=== PATIENT | male | born 1935 | race Caucasian/White ===

== ENCOUNTER → 2018-07-01 | Outpatient (CLI) | payer OTHER | LOC: LAB SHORT 07:38 → PLD 07:38 | DX: L30.9 Dermatitis, unspecified (principal) | CPT/HCPCS: 88312 ==

== ENCOUNTER 2020-02-06 11:01 | Emergency (ER) | payer OTHER, MEDICARE ==
[~2020-02-06] VITALS: Ht 180.3 cm; Wt 64.9 kg
[2020-02-06 12:47] LABS: Source, Urine Clean Catch
[2020-02-06 12:59] LABS: Bilirubin, Urine Neg (Neg); Blood, Urine Neg (Neg); Glucose Qualitative, Urine Neg (Neg); Ketones, Urine Neg (Neg); Leukocyte Esterase, Urine Neg (Neg); Nitrite, Urine Neg (Neg); Protein, Urine Neg (Neg); Urobilinogen, Urine NORM (Normal)
[2020-02-06 13:08] LABS: Appearance, Urine Clear (Clear); Color, Urine Yellow (P-Yellow)
[2020-02-06] MEDS ORDERED: SERT100 PO (14:07)
[2020-02-06] MEDS ORDERED: CLOP75 PO ×2 (14:08→15:40)
[2020-02-06] MEDS ORDERED: TORSE20 PO (15:38)
[2020-02-06] MEDS ORDERED: Abilify2 MG PO (15:38)
[2020-02-06] MEDS ORDERED: DONE5 PO (15:38)
[2020-02-06] MEDS ORDERED: SERT25 PO (15:40)
[2020-02-06] MEDS ORDERED: Lisinopril2.5 MG PO (15:40)
[2020-02-06] MEDS ORDERED: POTCHL20ER PO (15:40)
[2020-02-06] MEDS ORDERED: Pravachol40 MG PO (15:41)
[2020-02-06] MEDS ORDERED: Flomax0.4 MG PO (15:41)
[2020-02-06] MEDS ORDERED: CARV3.125 PO (15:42)
== END 2020-02-06 15:53 | disposition home or self-care (01) ==
LOC: ER 11:01
PROVIDERS: Physician Assistant
DX: N40.1 Benign prostatic hyperplasia with lower urinary tract symptoms (principal); R35.0 Frequency of micturition; F41.9 Anxiety disorder, unspecified; F03.90 Unspecified dementia, unspecified severity, without behavioral disturbance, psychotic disturbance, mood disturbance, and anxiety; Z79.899 Other long term (current) drug therapy; Z79.02 Long term (current) use of antithrombotics/antiplatelets
CPT/HCPCS: 51798; 81003; 99283-25

== ENCOUNTER → 2020-11-18 | Outpatient (CLI) | payer OTHER ==
[~2020-11-18] MED LIST: ACETAMINOPHEN500 MG PO; ASPI81CH PO; Abilify2 MG PO; CARBLEV25 SL; CARV3.125 PO; CLOP75 PO; DONE5 PO; Flomax0.4 MG PO; Isosorbide Mono30 MG PO; LIDO700A20 TOP; Lisinopril2.5 MG PO; MIRT15 PO; MULVITA PO; POTCHL20ER PO; Pravachol40 MG PO; SERT100 PO; SERT25 PO; TORSE20 PO; Valium5 MG PO
[2020-11-18 16:47] LABS: BASOPHILS ABSOLUTE AUTO 0.02 K/mm3 (0.00-0.23); BASOPHILS PERCENT AUTO 0 % (0-2); EOSINOPHILS PERCENT AUTO 1 % (0-6); Hematocrit 41.9 % (37.0-53.0); Hemoglobin 14.1 g/dL (13.5-17.5); IMMATURE GRAN ABSOLUTE AUTO 0.04 K/mm3 (0.00-0.10); IMMATURE GRAN PERCENT AUTO 0 % (0-1); LYMPHOCYTES ABSOLUTE AUTO 1.66 K/mm3 (0.84-5.20); LYMPHOCYTES PERCENT AUTO 15 % (21-46); MONOCYTES ABSOLUTE AUTO 1.25 K/mm3 (0.16-1.47); MONOCYTES PERCENT AUTO 11 % (4-13); Mean Corpuscular HGB 31.2 pg (26.0-34.0); Mean Corpuscular HGB Conc 33.7 g/dL (31.5-36.5); Mean Corpuscular Volume 93 fL (80-100); Mean Platelet Volume 9.7 fL (9.1-12.4); NEUTROPHILS ABSOLUTE AUTO 7.99 K/mm3 (1.96-9.15); NEUTROPHILS PERCENT AUTO 72 % (41-73); Platelet Count 225 K/mm3 (150-400); RDW Coefficient Variation 12.8 % (11.7-14.2); RDW Standard Deviation 43.4 fL (35.1-46.3); Red Blood Cell Count 4.52 M/mm3 (4.30-5.90); White Blood Cell Count 11.06 K/mm3 (4.00-11.30)
[2020-11-18 17:05] LABS: Albumin, Blood 3.9 g/dL (3.4-5.0); Bilirubin, Total 0.4 mg/dL (0.1-1.0); Bun/Creatinine Ratio 18.1 (12.0-20.0); Calcium, Blood 9.9 mg/dL (8.5-10.1); Creatinine, Blood 1.88 mg/dL (0.60-1.20); Potassium, Blood 4.3 mmol/L (3.5-5.5); Thyroid Stimulating Hormone 3.145 uIU/mL (0.360-4.800); Total Protein, Blood 7.9 g/dL (6.4-8.2)
== END ==
LOC: LAB SHORT 16:43 → LAB 16:43
PROVIDERS: Physician Assistant
DX: R53.83 Other fatigue (principal)
CPT/HCPCS: 80053; 84443; 85025

== ENCOUNTER 2021-05-01 20:53 | Emergency (ER) | payer OTHER ==
[~2021-05-01] VITALS: Ht 180.3 cm; Wt 76.2 kg
[~2021-05-01 20:53] MED LIST changes: -ACETAMINOPHEN500 MG PO; -ASPI81CH PO; -CARBLEV25 SL; -Isosorbide Mono30 MG PO; -LIDO700A20 TOP; -MIRT15 PO; -MULVITA PO; -Valium5 MG PO
[2021-05-01] MEDS ORDERED: ASPI81CH PO (21:21)
[2021-05-01] MEDS ORDERED: CARBLEV25 SL (21:22)
[2021-05-01] MEDS ORDERED: MULVITA PO (21:23)
[2021-05-01] MEDS ORDERED: Isosorbide Mono30 MG PO (21:24)
[2021-05-01] MEDS ORDERED: MIRT15 PO (21:25)
[2021-05-01 23:17] LABS: BASOPHILS ABSOLUTE AUTO 0.02 K/mm3 (0.00-0.23); BASOPHILS PERCENT AUTO 0 % (0-2); EOSINOPHILS ABSOLUTE AUTO 0.39 K/mm3 (0.00-0.68); EOSINOPHILS PERCENT AUTO 4 % (0-6); Hematocrit 35.4 % (37.0-53.0); Hemoglobin 11.9 g/dL (13.5-17.5); IMMATURE GRAN ABSOLUTE AUTO 0.04 K/mm3 (0.00-0.10); IMMATURE GRAN PERCENT AUTO 0 % (0-1); LYMPHOCYTES ABSOLUTE AUTO 2.29 K/mm3 (0.84-5.20); LYMPHOCYTES PERCENT AUTO 22 % (21-46); MONOCYTES ABSOLUTE AUTO 1.48 K/mm3 (0.16-1.47); MONOCYTES PERCENT AUTO 14 % (4-13); Mean Corpuscular HGB 31.2 pg (26.0-34.0); Mean Corpuscular HGB Conc 33.6 g/dL (31.5-36.5); Mean Corpuscular Volume 93 fL (80-100); Mean Platelet Volume 9.5 fL (9.1-12.4); NEUTROPHILS ABSOLUTE AUTO 6.09 K/mm3 (1.96-9.15); NEUTROPHILS PERCENT AUTO 59 % (41-73); Platelet Count 190 K/mm3 (150-400); RDW Coefficient Variation 12.2 % (11.7-14.2); RDW Standard Deviation 42.1 fL (35.1-46.3); Red Blood Cell Count 3.81 M/mm3 (4.30-5.90); White Blood Cell Count 10.31 K/mm3 (4.00-11.30)
[2021-05-01 23:31] LABS: Calcium, Blood 8.9 mg/dL (8.5-10.1); Creatinine, Blood 2.12 mg/dL (0.60-1.20); Potassium, Blood 4.4 mmol/L (3.5-5.5)
[2021-05-01 23:58] LABS: Source, Urine Clean Catch
[2021-05-02 00:04] LABS: Bilirubin, Urine Neg (Neg); Blood, Urine Neg (Neg); Glucose Qualitative, Urine Neg (Neg); Ketones, Urine Neg (Neg); Leukocyte Esterase, Urine Neg (Neg); Nitrite, Urine Neg (Neg); Protein, Urine Neg (Neg); Specific Gravity, Urine 1.015 (1.003-1.022); Urobilinogen, Urine NORM (Normal)
[2021-05-02 00:09] LABS: Appearance, Urine Clear (Clear); Color, Urine Yellow (P-Yellow)
[2021-05-02] MEDS ORDERED: LIDO700A20 TOP (01:45)
[2021-05-02] MEDS ORDERED: ACETAMINOPHEN500 MG PO (01:45)
[2021-05-02] MEDS ORDERED: Valium5 MG PO (01:45)
== END 2021-05-02 02:03 | disposition home or self-care (01) ==
LOC: ER 20:53
PROVIDERS: Emergency Medicine
DX: M54.5 Low back pain (principal); G89.29 Other chronic pain; Z79.82 Long term (current) use of aspirin; Z79.899 Other long term (current) drug therapy
CPT/HCPCS: 74177; 80048; 81003; 85025; 96360-59; 99284-25; A9270; J7120; Q9967

== ENCOUNTER 2021-07-01 21:21 | Observation (INO) | payer OTHER ==
[~2021-07-01] VITALS: Ht 180.3 cm; Wt 71.5 kg
[~2021-07-01 21:21] MED LIST changes: +ACETAMINOPHEN500 MG PO; +ASPI81CH PO; +CARBLEV25 PO; +Isosorbide Mono30 MG PO; +LIDO700A20 TOP; +MIRT15 PO; +MULVITA PO; -SERT25 PO; +SERT50 PO; +Valium5 MG PO
[2021-07-01 21:42] LABS: BASOPHILS ABSOLUTE AUTO 0.01 K/mm3 (0.00-0.23); BASOPHILS PERCENT AUTO 0 % (0-2); EOSINOPHILS ABSOLUTE AUTO 0.03 K/mm3 (0.00-0.68); EOSINOPHILS PERCENT AUTO 0 % (0-6); Hematocrit 24.1 % (37.0-53.0); Hemoglobin 8.1 g/dL (13.5-17.5); IMMATURE GRAN ABSOLUTE AUTO 0.14 K/mm3 (0.00-0.10); IMMATURE GRAN PERCENT AUTO 1 % (0-1); LYMPHOCYTES ABSOLUTE AUTO 0.97 K/mm3 (0.84-5.20); LYMPHOCYTES PERCENT AUTO 10 % (21-46); MONOCYTES ABSOLUTE AUTO 1.22 K/mm3 (0.16-1.47); MONOCYTES PERCENT AUTO 12 % (4-13); Mean Corpuscular HGB 30.5 pg (26.0-34.0); Mean Corpuscular HGB Conc 33.6 g/dL (31.5-36.5); Mean Corpuscular Volume 91 fL (80-100); Mean Platelet Volume 9.6 fL (9.1-12.4); NEUTROPHILS ABSOLUTE AUTO 7.62 K/mm3 (1.96-9.15); NEUTROPHILS PERCENT AUTO 76 % (41-73); Platelet Count 285 K/mm3 (150-400); RDW Coefficient Variation 12.6 % (11.7-14.2); RDW Standard Deviation 41.9 fL (35.1-46.3); Red Blood Cell Count 2.66 M/mm3 (4.30-5.90); White Blood Cell Count 9.99 K/mm3 (4.00-11.30)
[2021-07-01 22:11] LABS: Albumin, Blood 2.2 g/dL (3.4-5.0); Albumin/Globulin Ratio 0.5 (0.8-1.8); Bilirubin, Total 0.4 mg/dL (0.1-1.0); Calcium, Blood 7.9 mg/dL (8.5-10.1); Creatinine, Blood 2.11 mg/dL (0.60-1.20); Globulin, Blood 4.1 g/dL (2.2-4.0); Potassium, Blood 4.5 mmol/L (3.5-5.5); Total Protein, Blood 6.3 g/dL (6.4-8.2)
[2021-07-01 22:22] LABS: Troponin I 0.509 ng/mL (0.000-0.040)
[2021-07-01 23:37] LABS: Source, Urine Catheter
[2021-07-01 23:39] LABS: Bilirubin, Urine Neg (Neg); Blood, Urine Neg (Neg); Glucose Qualitative, Urine Neg (Neg); Ketones, Urine Neg (Neg); Leukocyte Esterase, Urine Neg (Neg); Nitrite, Urine Neg (Neg); Protein, Urine Neg (Neg); Specific Gravity, Urine 1.015 (1.003-1.022); Urobilinogen, Urine NORM (Normal)
[2021-07-01 23:46] LABS: Appearance, Urine Clear (Clear); Color, Urine Yellow (P-Yellow)
[2021-07-01 23:48] LABS: International Normalized Ratio 1.06; Prothrombin Time Results 11.4 Sec (9.7-11.5)
[2021-07-02 00:32] LABS: SARS-Cov-2 (COVID-19) PCR, MMC POSITIVE (NEGATIVE)
[2021-07-02 02:15] LABS: BASOPHILS ABSOLUTE AUTO 0.01 K/mm3 (0.00-0.23); BASOPHILS PERCENT AUTO 0 % (0-2); EOSINOPHILS ABSOLUTE AUTO 0.03 K/mm3 (0.00-0.68); EOSINOPHILS PERCENT AUTO 0 % (0-6); Hematocrit 25.5 % (37.0-53.0); Hemoglobin 8.7 g/dL (13.5-17.5); IMMATURE GRAN ABSOLUTE AUTO 0.14 K/mm3 (0.00-0.10); IMMATURE GRAN PERCENT AUTO 2 % (0-1); LYMPHOCYTES ABSOLUTE AUTO 1.11 K/mm3 (0.84-5.20); LYMPHOCYTES PERCENT AUTO 13 % (21-46); MONOCYTES ABSOLUTE AUTO 1.01 K/mm3 (0.16-1.47); MONOCYTES PERCENT AUTO 12 % (4-13); Mean Corpuscular HGB 31.1 pg (26.0-34.0); Mean Corpuscular HGB Conc 34.1 g/dL (31.5-36.5); Mean Corpuscular Volume 91 fL (80-100); Mean Platelet Volume 9.2 fL (9.1-12.4); NEUTROPHILS ABSOLUTE AUTO 6.45 K/mm3 (1.96-9.15); NEUTROPHILS PERCENT AUTO 74 % (41-73); Platelet Count 281 K/mm3 (150-400); RDW Coefficient Variation 12.4 % (11.7-14.2); RDW Standard Deviation 41.8 fL (35.1-46.3); White Blood Cell Count 8.75 K/mm3 (4.00-11.30)
[2021-07-02 02:39] LABS: Albumin, Blood 2.5 g/dL (3.4-5.0); Albumin/Globulin Ratio 0.6 (0.8-1.8); Bilirubin, Total 0.5 mg/dL (0.1-1.0); Bun/Creatinine Ratio 39.5 (12.0-20.0); Calcium, Blood 9.1 mg/dL (8.5-10.1); Creatinine, Blood 1.9 mg/dL (0.60-1.20); Globulin, Blood 4.2 g/dL (2.2-4.0); Potassium, Blood 4.6 mmol/L (3.5-5.5); Total Protein, Blood 6.7 g/dL (6.4-8.2)
[2021-07-02 03:09] LABS: Troponin I 0.563 ng/mL (0.000-0.040)
--- NOTE | 2021-07-02 03:28 | NUR ---
PATIENT IS A NEW ADMIT FROM THE ED. ALERT TO SELF AND FAMILY. FOUR PERSON TRANSFER FROM [facility] TO BED. CONFUSED AND MULTIPLE BED EXIT ATTEMPTS. HX PARKINSON DEMENTIA. ON ROOM AIR. COVID 19+. PATIENT KEEPS REPEATING SAME QUESTIONS ASKING FOR HIS AND DAUGHTER WHEN ANSWERS PROVIDED EACH TIME. REPORTS TESTICLE PAIN FROM POSSIBLE FALL AT HOME WITH KNEES BRUISING. ORIENTED TO ROOM AND CALL LIGHT SYSTEM. REPORTS HE WANTS OUT OF BED. DENIES CHEST PAIN, SOB, AND N/V. WCTM.
--- NOTE | 2021-07-02 03:35 | NUR ---
HOSPITALIST DR YOUSIF ORDERED ROSITA VEST FOR FALL RISK AND OOB ATTEMPTS WITH CONFUSION. TYLENOL 500 Q6 PRN ORDERED FOR TESTICLE PAIN AND REFUSED ICE PACKS. NS INFUSING PER ORDER. IV PROTONIX INFUSING.
[2021-07-02 09:58] LABS: Hemoglobin 8.2 g/dL (13.5-17.5)
[2021-07-02 10:20] LABS: Troponin I 0.48 ng/mL (0.000-0.040)
[2021-07-02 12:45] LABS: Hematocrit 23.8 % (37.0-53.0); Hemoglobin 7.9 g/dL (13.5-17.5)
[2021-07-02 13:07] LABS: Ferritin, Serum 398 ng/mL (26-388); Lactate Dehydrogenase (Ld),Bld 277 U/L (100-240)
--- NOTE | 2021-07-02 17:08 | NUR ---
PT AOX1 AND IMPULSIVE. PT STARTED SHIFT REPORTING TESTICLE PAIN AND DR DE LA CRUZ WAS NOTFIED. NO IRRITATION OR SWELLING WAS NOTED IN GROIN AREA. PT WANTS TO GET OUT OF BED AND NEEDS TO HAVE POSE FOR FALL PREVENTION PT IS WEAK. BED ALARM IS IN PLACE AND CALL LIGHT IS WITHIN REACH. CALLED AND WAS VERY UPSET SHE DID NOT RECIEVE AND UPDATE UNTIL TODAY. DR DE LA CRUZ WAS UNABLE TO STOP IN WHEN CAME TO SEE PT SHE IS HIS CAREGIVER. DR DE LA CRUZ HAD THIS DIVISION CHAIR TEXT PHONE NUMBER OF PT TO HIM SO HE COULD CALL WITH UPDATE. LEFT HOSPITAL STATING SHE WAS UPSET SHE HAD NOT HEARD FROM DOCTOR. WILL CONTINUE TO MONITOR PT.
[2021-07-02 19:22] LABS: Hematocrit 25.3 % (37.0-53.0); Hemoglobin 8.3 g/dL (13.5-17.5)
[2021-07-03 01:15] LABS: BASOPHILS ABSOLUTE AUTO 0.01 K/mm3 (0.00-0.23); BASOPHILS PERCENT AUTO 0 % (0-2); EOSINOPHILS ABSOLUTE AUTO 0.08 K/mm3 (0.00-0.68); EOSINOPHILS PERCENT AUTO 1 % (0-6); Hematocrit 25.5 % (37.0-53.0); Hemoglobin 8.3 g/dL (13.5-17.5); IMMATURE GRAN ABSOLUTE AUTO 0.16 K/mm3 (0.00-0.10); IMMATURE GRAN PERCENT AUTO 2 % (0-1); LYMPHOCYTES ABSOLUTE AUTO 1.21 K/mm3 (0.84-5.20); LYMPHOCYTES PERCENT AUTO 18 % (21-46); MONOCYTES ABSOLUTE AUTO 1.22 K/mm3 (0.16-1.47); MONOCYTES PERCENT AUTO 18 % (4-13); Mean Corpuscular HGB 30.7 pg (26.0-34.0); Mean Corpuscular HGB Conc 32.5 g/dL (31.5-36.5); Mean Corpuscular Volume 94 fL (80-100); Mean Platelet Volume 9.3 fL (9.1-12.4); NEUTROPHILS ABSOLUTE AUTO 4.24 K/mm3 (1.96-9.15); NEUTROPHILS PERCENT AUTO 61 % (41-73); Platelet Count 286 K/mm3 (150-400); RDW Coefficient Variation 12.7 % (11.7-14.2); RDW Standard Deviation 43.7 fL (35.1-46.3); White Blood Cell Count 6.92 K/mm3 (4.00-11.30)
[2021-07-03 01:34] LABS: Calcium, Blood 8.6 mg/dL (8.5-10.1); Creatinine, Blood 1.2 mg/dL (0.60-1.20); Potassium, Blood 4.9 mmol/L (3.5-5.5)
--- NOTE | 2021-07-03 03:03 | NUR ---
COMPUTER TRAINING SPECIALIST SUMMARY AWAKE AT INTERVALS SINCE HS, SOME ATTEMPTS TO CLIMB OUT OF BED AND ASKING STAFF TO "CUT" OFF HIS "JACKET" (i.e. ROSITA VEST). REMAINS HIGH FALL RISK AND DOES NOT REDIRECT EASILY. VEST CONTINUED PER MD ORDER. INCONT OF URINE AND CHANGED, THEN A WHILE LATER, HE HAD USED URINAL, AND PLACED IT ON HIS TABLE. URINAL EMPTIED. TOLERATING MEDS WITH APPLESAUCE. CALL LIGHT IN REACH. ISOLATION PREACUTIONS MAINTAINED.
--- NOTE | 2021-07-03 13:05 | NUR ---
Update 07/03/21: Spoke with per request of Dr. Quinonez. Pt. has been declining over the last few weeks with frequent falls and increased weakness. His is concerned that she will not be able to provide the care he needs at home. She is also hoping that he might make some improvement over prior to transitioning to long-term care. Pt. does not have long-term care benefits and would not be a good canidate for spend-down as his still lives within their home and is doing very well. We discussed long-term care coverage and the need for Medicaid assistance if pt. is able to qualify. I would recommend that he go to SNF for rehab if PT feels that he will make progress. The patient's could then work towards long-term placement with assistance from facility social media marketer, [facility], or [facility] assistance. I advised pt. that Lita will be the critical care technician for [facility]. She is requesting a call with an update this afternoon if at all possible. Pt. is COVID positive. He will need state approval for SNF. Patient's is aware of this.
--- NOTE | 2021-07-03 14:20 | NUR ---
07/03/21- pt tested positive for COVID. reports that he has been declining over the last couple of weeks. Pt does not have any caregiver financing. Pt's was advised that she start the process with [facility] and [facility] assistance. Pt currently is in restraints due to impulsive behaviors and risk of falls. Pt is in a antony vest. Called floor nurse to ask if we can have the vest removed and bed alarm instead. RN will call back if he has any questions. Advised that pt will have to be off all restraints for 24-48 hrs before he would be accepted at SNF. -dave
--- NOTE | 2021-07-03 17:04 | NUR ---
SHIFT SUMMARY PATIENT ALERT, ORIENTED X2-3 THIS SHIFT. PATIENT IS IMPULSIVE AND FORGETFUL. PATIENT REMAINS IN A ROSITA DUE TO IMPULSIVENESS AND UNSTEADINESS. PATIENT HAS ATTEMPTED TO GET OUT OF BED MULTIPLE TIMES. PATIENT'S IN THE ROOM THIS AM TO SPEAK WITH THE DOCTOR. PATIENT IS COOPERATIVE WITH CARE. PATIENT SLEPT THROUGH MUCH OF THIS SHIFT. PATIENT AWAKES WHEN INTERACTED WITH THEN QUICKLY RETURNS TO SLEEP. PATIENTS STATES THIS IS BASELINE FOR THE PATIENT AND WHAT HE DOES AT HOME IN HIS RECLINER. PATIENT FREQUENTLY CHANGES POSITION INDEPENDENTLY. PATIENT CURRENTLY LYING IN BED SLEEPING.
--- NOTE | 2021-07-04 05:07 | NUR ---
SHIFT SUMMARY PT HAS RESTED OFF AND ON T/O SHIFT. PT CONTINUES TO HAVE PERIODS OF CONFUSION, FORGETTING WHERE HE IS AND WHY. PT ATTEMPTS TO GET OOB THIS SHIFT IN ATTEMPTS TO LOOK FOR HIS . PT REMAINS WEAK, UNSTEADY AND IS A HIGH FALL RISK. ROSITA VEST REMAINS IN PLACE FOR PT SAFETY. PT MEDICATED FOR GROIN PAIN X1 WITH AFFECT. RESPIRATORY STATUS IS STABLE AT THIS TIME, AND HE IS NOT REQUIRING ANY O2, RESPIRATIONS E/U ON RA. VITALS ARE STABLE. PLAN AT THIS TIME IS POSSIBLE [facility] HOME HEALTH. NO ACUTE CHANGES OVERNIGHT. BED IN LOWEST POSITON, BED ALARM ON, CALL LIGHT WITHIN REACH.
[2021-07-04 05:36] LABS: BASOPHILS ABSOLUTE AUTO 0.03 K/mm3 (0.00-0.23); BASOPHILS PERCENT AUTO 0 % (0-2); EOSINOPHILS ABSOLUTE AUTO 0.13 K/mm3 (0.00-0.68); EOSINOPHILS PERCENT AUTO 1 % (0-6); Hematocrit 27.7 % (37.0-53.0); IMMATURE GRAN ABSOLUTE AUTO 0.29 K/mm3 (0.00-0.10); IMMATURE GRAN PERCENT AUTO 3 % (0-1); LYMPHOCYTES ABSOLUTE AUTO 1.58 K/mm3 (0.84-5.20); LYMPHOCYTES PERCENT AUTO 17 % (21-46); MONOCYTES ABSOLUTE AUTO 1.47 K/mm3 (0.16-1.47); MONOCYTES PERCENT AUTO 16 % (4-13); Mean Corpuscular HGB 30.2 pg (26.0-34.0); Mean Corpuscular HGB Conc 32.5 g/dL (31.5-36.5); Mean Corpuscular Volume 93 fL (80-100); Mean Platelet Volume 9.2 fL (9.1-12.4); NEUTROPHILS PERCENT AUTO 62 % (41-73); Platelet Count 342 K/mm3 (150-400); RDW Coefficient Variation 12.5 % (11.7-14.2); RDW Standard Deviation 42.5 fL (35.1-46.3); Red Blood Cell Count 2.98 M/mm3 (4.30-5.90)
[2021-07-04 06:09] LABS: Alanine Aminotransfer (ALT/SGP 20 U/L (12-78); Albumin, Blood 2.3 g/dL (3.4-5.0); Albumin/Globulin Ratio 0.5 (0.8-1.8); Alk Phos 66 U/L (50-136); Anion Gap 3 mmol/L (6-16); Aspartate Aminotrans (AST/SGOT 22 U/L (12-37); Bilirubin, Total 0.4 mg/dL (0.1-1.0); Blood Urea Nitrogen 23 mg/dL (8-24); Bun/Creatinine Ratio 22.8 (12.0-20.0); CO2, Blood 23 mmol/L (21-32); Calcium, Blood 8.3 mg/dL (8.5-10.1); Chloride, Blood 113 mmol/L (98-108); Creatinine, Blood 1.01 mg/dL (0.60-1.20); Globulin, Blood 4.2 g/dL (2.2-4.0); Glomerular Filtration Rate >60 (60-); Glucose, Blood 89 mg/dL (70-99); Potassium, Blood 4.6 mmol/L (3.5-5.5); Sodium, Blood 139 mmol/L (136-145); Total Protein, Blood 6.5 g/dL (6.4-8.2)
[2021-07-04] MEDS ORDERED: PANT40 PO (10:55)
--- NOTE | 2021-07-04 12:03 | NUR ---
DISCHARGE SUMMARY PT A/O X3 THIS AM. SLEEPING COMFORTABLY IN BED WHEN CHECKED ON THIS AM. MEDS CRUSHED IN APPLESAUCE. USED THE URINAL AT BEDSIDE. TO BEDSIDE TO DISCUSS DISCHARGE INSTRUCTIONS. VOICED CONCERNS OVER MEDICATIONS RECEIVED IN HOSPITAL. SAID THAT THE PATIENT NO LONGER TAKES ZOLO[place]. ADVISED THE TO FOLLOW UP WITH PT'S PCP ON THE ISSUE. VERBALIZED UNDERSTANDING. PT AMBULATED TO THE WHEELCHAIR WITH A 2 PERSON ASSIST. RESTRAINTS REMOVED. VSS. IV DC'D WNL. DRIVEN HOME BY .
--- NOTE | 2021-07-04 15:32 | NUR ---
07/04/21- SPOKE WITH DR. BAR, PT IS STABLE TO D/C HOME WITH HOME HEALTH. SPOKE WITH AND SHE WILL BE COMING IN THIS MORNING TO GO OVER THE D/C INSTRUCTIONS AND MEDICATIONS. SHE HAS SOME CONFUSION ABOUT MEDICATIONS. ALSO FEELS THAT HER DOES NOT HAVE COVID (AND LIKES TO DEBATE THIS ISSUE DURING CONVERSATIONS.) WILL BE TAKING THE PT HOME AND WILL HAVE FAMILY AT THE HOME TO HELP GET HIM INSIDE. REVIEWED MICAH WITH HER. LEFT [employer] AND MICAH LETTER FOR TO FORESTRY PROFESSOR WHEN SHE GETS TO THE HOSPITAL. -SHELIA
== END 2021-07-04 11:42 | disposition home health service (06) ==
LOC: ER 21:21 → MEDS 21:22 → ER 23:59 → MEDS 23:59 → ER 07-02 16:19 → MEDS 07-04 11:42
PROVIDERS: Emergency Medicine; Family Medicine; Internal Medicine; ADMIT Internal Medicine
DX: U07.1 COVID-19 (principal); K29.71 Gastritis, unspecified, with bleeding; J12.82 Pneumonia due to coronavirus disease 2019; I12.9 Hypertensive chronic kidney disease with stage 1 through stage 4 chronic kidney disease, or unspecified chronic kidney disease; N18.4 Chronic kidney disease, stage 4 (severe); R77.8 Other specified abnormalities of plasma proteins; D63.1 Anemia in chronic kidney disease; N50.819 Testicular pain, unspecified; I25.10 Atherosclerotic heart disease of native coronary artery without angina pectoris; D62 Acute posthemorrhagic anemia; G20 Parkinson's disease; F02.80 Dementia in other diseases classified elsewhere, unspecified severity, without behavioral disturbance, psychotic disturbance, mood disturbance, and anxiety; Z85.46 Personal history of malignant neoplasm of prostate; Z95.2 Presence of prosthetic heart valve; Z95.5 Presence of coronary angioplasty implant and graft; Z95.1 Presence of aortocoronary bypass graft; Z79.82 Long term (current) use of aspirin
CPT/HCPCS: 36415; 71045; 76870; 80048; 80053; 81003; 82550; 82728; 83605; 83615; 83880; 84484; 85014; 85018; 85025; 85379; 85610; 85730; 93005; 93010; 96374; 96376; 99285-25; A9270; C9113; G0378; J7030; Q0243; U0004